=== PATIENT | female | born 1935 | race Caucasian/White ===

== ENCOUNTER 2023-01-18 13:43 | Emergency (ER) | payer MEDICARE, OTHER ==
[~2023-01-18] VITALS: Ht 154.9 cm; Wt 99.8 kg
[2023-01-18 14:16] VITALS: BP_SYST 153
--- NOTE | 2023-01-18 14:18 | NUR ---
Placed in room 7 . Placed on youth nutritional monitor, blood pressure machine and pulse oximeter. To gown for exam. Side rails up. Report given to Jameel.
--- NOTE | 2023-01-18 14:20 | NUR ---
DR. CARMONA AT BEDSIDE EXAMINING THE PT.
[2023-01-18] MEDS ORDERED: HYDROcodone/ACETAMIN 10-325 MG TAB PO ONE (14:30)
[2023-01-18] MEDS ORDERED: IBUPROFEN 800 MG TABLET PO ONE (14:30)
--- NOTE | 2023-01-18 14:34 | NUR ---
BIB EMS FROM HOME WITH C/O BILATERAL SHOULDER PAIN - 08/09. PT STATES SHE ALSO HAS BILATERAL GLUTE PAIN - 05/09. PT STATES SHE IS EXPERIENCING TREMBLING SENSATIONS THROUGHOUT HER BODY. PT STATES SHE FELL ON HER SHOULDERS A FEW MONTHS AGO AND WAS DIAGNOSED WITH BILATERAL SHOULDER FRACTURES. HX - FALLS, HTN, DM, ARTHRITIS. PT AAXO4, VSS, NAD, BREATHING IS EVEN AND UNLABORED. PT AMBULATORY WITH STEADY GAIT. PT ON SHEET ROCK INSTALLER SHOWING NSR. HOB ELEVATED, SIDE RIALS UP, BED IN LOWEST POSITION,CALL LIGHT WITHIN REACH. SAFETY PRECUATIONS AND COMFORT MEASURES IN PLACE. PENDING MD YOST AND ORDERS.
[2023-01-18 15:32] LABS: BASOPHILS % (AUTO) 0.4 % (0.0-2.0); EOSINOPHILS # (AUTO) 0.1 K/uL (0.0-0.4); EOSINOPHILS % (AUTO) 0.9 % (0.0-4.0); HEMATOCRIT 22.3 % (36-48); HEMOGLOBIN 7.4 g/dL (12.0-16.0); LYMPHOCYTES # (AUTO) 1.1 K/uL (1.0-5.5); LYMPHOCYTES % (AUTO) 11.8 % (20.5-51.5); MEAN CORPUSCULAR HEMOGLOBIN 31 pg (27-31); MEAN CORPUSCULAR HGB CONC 33 % (32-36); MEAN CORPUSCULAR VOLUME 92 fL (79.0-98.0); MONOCYTES # (AUTO) 0.5 K/uL (0.0-1.0); MONOCYTES % (AUTO) 5.3 % (1.7-9.3); NEUTROPHILS # (AUTO) 7.5 K/uL (1.8-7.7); NEUTROPHILS % (AUTO) 81.6 % (40.0-70.0); PLATELET COUNT (AUTO) 395 K/uL (130-430); RED BLOOD CELL COUNT(AUTO) 2.41 MIL/uL (4.2-6.2); RED CELL DISTRIBUTION WIDTH 15.1 % (9.0-15.0); WHITE BLOOD COUNT (AUTO) 9.2 K/uL (4.8-10.8)
[2023-01-18 15:50] LABS: ANION GAP 7 (5-15); CALCIUM 8.4 mg/dL (8.4-11.0); CHLORIDE 101 mmol/L (98-107); CREATININE 2.78 mg/dL (0.55-1.30); GLUCOSE 174 mg/dL (70-99); UREA NITROGEN, BLOOD 46 mg/dL (8-21)
[2023-01-18 15:54] LABS: ALANINE AMINOTRANSFERASE 8 U/L (12-78); ALBUMIN 1.8 g/dL (3.4-4.8); ASPARTATE AMINOTRANSFERASE 17 U/L (10-37); TOTAL BILIRUBIN 0.5 mg/dL (0.0-1.0)
[2023-01-18] MEDS ORDERED: IBUPROFEN 800 MG TABLET ONE (17:38)
[2023-01-18] MEDS ORDERED: HYDROcodone/ACETAMIN 10-325 MG TAB ONE (17:38)
--- NOTE | 2023-01-18 18:04 | NUR ---
PT MEDICALLY CLEARED FOR D/C. D/C INSTRUCTIONS GIVEN TO PT. PT TO FOLLOW-UP WITH PCP WITHIN 1-3 DAYS AND TO RETURN TO ED FOR WORSENING S/S. PT VERBALIZED UNDERSTANDING. PT AAOX4, NAD, VSS, WRITSTBAND REMOVED. PT AMBULATORY WITH STEADY GAIT. PT LEFT WITH ALL BELONGINGS.
[2023-01-18 18:05] VITALS: BP_SYST 130
== END 2023-01-18 18:04 | disposition home or self-care (01) ==
LOC: SED 13:43
DX: E11.65 Type 2 diabetes mellitus with hyperglycemia (principal); M25.512 Pain in left shoulder; M25.511 Pain in right shoulder; G89.29 Other chronic pain; Z79.899 Other long term (current) drug therapy
CPT/HCPCS: 36415; 71045; 80053; 85025; 93005; 99285